=== PATIENT | male | born 1950 | race Caucasian/White ===

== ENCOUNTER → 2018-10-17 | Outpatient (CLI) | payer BC ==
[~2018-10-17] MED LIST: ALLOPURINOL 30300 M3 PO; AMARYL1 MG PO; AMLODIPINE BESY10 MG PO; BYETTA PEN 11 PENINJ SUBQ; CARVEDILOL12.5 MG PO; COLACE100 MG PO; COZAAR100 MG PO; CRESTOR10 MG PO; DIOVAN320 MG PO; ENOXAPARIN30 MG/0.3 SQ; FLOMAX0.4 MG PO; FLONASE 0.05%50 MCG NASAL; FLUZONE 2045 MCG/011; FUROSEMIDE 80 M80 M1 PO; GABAPENTIN PO; GLUCOPHAGE1000 MG PO; GLUCOPHAGE500 MG PO; HYDROCODON-ACE1 EAC7 PO; KEFLEX500 MG PO; LACTULOSE; LANTUS SUBQ; LEVOTHYROXINE100 MCG PO; LIPITOR80 MG PO; LO-DOSE ASPIRIN81 M1 PO; LOVAZA1000 MG PO; MEN'S MULTIVIT1 EAC1 PO; MOBIC15 MG PO; NEXIUM20 M1 PO; NOVOLOG100 UNIT/1 PO; OXYCODONE-ACET1 EACH PO; OXYIR5 MG PO; PNEUMOVAX25 MCG/0.5; PRILOSEC 20 MG20 MG PO; PROAIR HFA8.5 GM; STOOL SOFTENER100 MG PO; VICTOZA0.6 MG/0.1 SUBQ; VITAMIN D-32000 UNIT PO
--- NOTE | ~2018-10-17 | PAINCON ---
[address] [address] PAIN MANAGEMENT CONSULTATION Name: LETYMARCELA RUEDA Room: [facility]#: [id number] Admission: 10/17/18 Attend Phys: Jed Ahn MD Discharge: Date of : 46 Report #: [id number] THIS REPORT FOR: //name// CC: Kirit Ahn DATE OF SERVICE: 10/17/2018 CHIEF COMPLAINT: Back pain. HISTORY OF PRESENT ILLNESS: The patient is a 68-year-old gentleman who has been referred to the pain clinic for evaluation. The patient has pain and discomfort in the lumbar area. He has had a laminectomy in the past. This was in 09/2016. States that it was at the lumbar area L3 through L5. He has continued to note some worsening of his pain and discomfort. He is limited in his ability to engage in activities of daily living such as walking, standing, because of the pain. He also has left and right knee pain. Finds that the oxycodone medication is helpful in those areas. Describes his pain as a 0 when sitting, but continues to escalate and becomes quite problematic to the point that it stops him from ambulating or standing after prolonged activity. Has used Tylenol to help control the pain. He has been told that he has spinal stenosis. Rates the pain as an 8/10 with activity. He has returned to the pain clinic for evaluation. ALLERGIES: IODINE, BETADINE, PETROLEUM JELLY, BLOOD PRESSURE CUFFS, TAPE, BAND-AIDS. HYDROMORPHONE CAUSES HALLUCINATIONS. CURRENT MEDICATIONS: Lipitor 80 mg, Coreg 12.5 mg 2 tablets daily, ProAir inhaler, Synthroid 100 mcg, losartan 100 mg, Lantus 15 mL, insulin injection does an injection at bedtime, NovoLog 9 units before meals, Victoza 1.8 mg, lactulose solution, Flomax 0.4 mg, Lasix 80 mg in the morning and 40 mg at night, ____, allopurinol 300 mg for gout, Vitamin D3 2000 international units, vitamin B12 1000 mcg, iron 65 mg, aspirin 81 mg, Mins one a day, omeprazole 20 mg, stool softener and laxatives p.r.n., and omega-3 1200 mg b.i.d. PAST MEDICAL HISTORY: 1. Diabetes. 2. Asthma. 3. Hypertension. 4. Heart disease. 5. Joint disease/arthritis. 6. Coronary artery disease. 7. Chronic kidney disease, stage 3. 8. Congestive heart failure. 9. COPD. 10. [place] [address] PAIN MANAGEMENT CONSULTATION Name: MARCELA DAVIDSON Room: [facility]#: [id number] Admission: 10/17/18 Attend Phys: Jed Ahn MD Discharge: Date of : 46 Report #: [id number] 11. 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 12. Obesity. 13. Nonalcoholic steatohepatitis. 14. Obstructive sleep apnea. 15. Spinal stenosis. 16. Trigger finger, right index. 17. Type 2 diabetes. 18. Diabetic polyneuropathy. PAST SURGICAL HISTORY: Appendectomy in 1966, carpal tunnel surgery in 2006, coronary artery stent placement in 03/2009, fracture bone in 1995 and 1996, hemorrhoidectomy in 1985, left knee replacement in 2011, laminectomy, left knee scope in 2011, left total knee arthroplasty, liver biopsy, meniscal tear repair in 2006, and tonsillectomy as a child. REVIEW OF SYSTEMS: Generally good health, fatigue, weakness, hearing loss, heart trouble, chest pain, shortness of breath with walking, swelling of feet, ankles, hands, asthma, joint pain, joint stiffness, muscle weakness, muscle pain, cramping, back pain, difficulty walking, slow to heal, bleeding and bruising tendencies, and transfusions. LABORATORY DATA: MRI of the lumbar spine dated 03/01/2017: 1. L1-L2, there is a mild degenerative disk bulge. Degenerative changes are seen involving the facet joints bilaterally. There is moderate ligamentum flavum hypertrophy bilaterally. There is prominence of the posterior epidural fat. These findings combine, do not result in significant spinal canal or neural foraminal stenosis. 2. L3-L4, the disk space, there is a moderate generalized disk bulge. Degenerative changes are seen involving the facet joints bilaterally. The patient is post-laminectomy at this level. Epidural scarring surrounding the posterior aspect of the thecal sac laterally. Mild left greater than right neural foraminal stenosis. Epidural scarring does not result in significant spinal canal stenosis. 3. L3-L4 disk space. There is mild degenerative disk bulge. The patient has post-laminectomy. Epidural scarring surrounds the posterior thecal sac. There is mild generalized disk bulge. There is eccentric left bulging to the left. Degenerative changes are seen involving the facet joints bilaterally. These findings do not significantly call spinal stenosis. 4. L4-L5, the space is post-laminectomy. Epidural scarring surrounds posterior aspect of the thecal sac laterally. There is moderate generalized disk bulge. The degenerative changes are seen involving the facet joints. These findings do not result in significant spinal canal stenosis. Moderate right neural foraminal stenosis is seen. The left neural foramen is patent. 5. At the L5-S1 disk space. There is a minimal degeneralized disk bulge. Prominent anterior and posterior epidural fat is seen. No definite area of significant spinal canal or neural foraminal stenosis. [facility] [place] [address] [place] [address] PAIN MANAGEMENT CONSULTATION Name: MARCELA DAVIDSON Room: [facility]#: [id number] Admission: 10/17/18 Attend Phys: Jed Ahn MD Discharge: Date of : 46 Report #: [id number] PAIN CLINIC ASSESSMENT AND PQRS: 1. The patient has some arthritic changes in lower portion of his back. He has had knee replacements on the left, knee scoping on the left, meniscal repairs on the right. The patient is not being treated for rheumatoid arthritis. 2. Height is 6 feet 0, weight 306 pounds, BMI is 41.5. 3. VITAL SIGNS: Blood pressure 158/79, heart rate 84, respiratory rate 16, room air saturation 96%, temperature 98.2. 4. Pain is 0 while sitting and 8/10 with walking and with activity. 5. Fall history: The patient has not fallen in the last 3 months. 6. Blood thinner. The patient is not on a blood thinning medication. 7. Hypertension. The patient is being treated for hypertension. 8. Opioids greater than 6 weeks. The patient is not taking an opioid medication on a long-term basis. 9. Risk assessment tool, low for opioid use. 10. Functional assessment tool, pain impact score is 29/70. 11. Recreational drug use. The patient denies use of recreational drugs. 12. Tobacco: The patient states he is not smoking at this juncture. 13. Alcohol: The patient denies significant use of alcoholic beverages. PHYSICAL EXAMINATION: GENERAL: The patient is a well-developed, well-nourished white male. Appears his stated age of 68. He is alert and oriented x 3. His affect is appropriate. Speech is fluent. HEENT: Normocephalic, atraumatic. Extraocular eye muscles intact. Sclerae nonicteric. Mucous membranes are moist. NECK: Without adenopathy or JVD. HEART: Regular rate today. LUNGS: Generally clear to auscultation. EXTREMITIES: Upper extremity muscle strength is judged to be 5/5 for the major muscle groups in the upper extremity. Deep tendon reflexes +1 at the biceps bilaterally. The patient without significant scoliosis. A well-healed scar in the lower portion of his back. The patient with complains of pain and discomfort with activity. Has no pain when sitting. Anterior and posterior spring tests are negative. The patient has some left and right paraspinus muscle soreness. Handy's sign negative. IMPRESSION: 1. Clinical findings of spinal stenosis. 2. Diabetes. 3. Asthma. 4. Hypertension. 5. Heart disease. 6. Joint disease/arthritis. 7. Coronary artery disease. 8. Chronic kidney disease, stage 3. [place] [address] PAIN MANAGEMENT CONSULTATION Name: MARCELA DAVIDSON Room: [facility]#: [id number] Admission: 10/17/18 Attend Phys: Jed Ahn MD Discharge: Date of : 46 Report #: [id number] 9. Congestive heart failure. 10. Chronic obstructive pulmonary disease. 11. Elevated cholesterol. 12. 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 13. Obesity. 14. Nonalcoholic steatohepatitis. 15. Obstructive sleep apnea. 16. Spinal stenosis. 17. Trigger finger, right index. 18. Type 2 diabetes. 19. Diabetic polyneuropathy. RECOMMENDATIONS: We discussed treatment options with the patient. The patient has clinical findings consistent with spinal stenosis. States that when he goes shopping if he leans on a cot, he does relatively well. Prolonged standing causes exacerbation of pain and discomfort down into his legs. He is not using opioid medications on a regular basis. We would recommend that the patient at this juncture try a low dose of opioid medication. A script for oxycodone has been written. The patient states that he has used opioids in the past. He is not sure that they have been very helpful. We recommend that he takes the medication prior to activities say if he is going to the shopping or going to engage in other activities then he should take the 5 mg of OxyContin prior to the procedure, it can be difficult to provide the patients with opioid medications with spinal stenosis. They generally have no pain while sedentary. Pain becomes more problematic when they are active. We also described a maneuver where the patient if standing, places his foot on a stool about 6 inches high. This changes the position of the spinal cord. Hopefully, opening up the spinal cord where he could stand for a longer period of time and do activities such as working in his garage, brushing his teeth, or working in the kitchen. He will call us if he has any concerns with his medications. We would like to thank you for letting us participate in his care. We hope he continues to improve. By: [id number]. Eric Ahn MD /reid
== END ==
LOC: M.PC 12:10
DX: M47.816 Spondylosis without myelopathy or radiculopathy, lumbar region (principal); M48.061 Spinal stenosis, lumbar region without neurogenic claudication; E11.22 Type 2 diabetes mellitus with diabetic chronic kidney disease; I13.0 Hypertensive heart and chronic kidney disease with heart failure and stage 1 through stage 4 chronic kidney disease, or unspecified chronic kidney disease; N18.3 Chronic kidney disease, stage 3 (moderate); I50.9 Heart failure, unspecified; I25.10 Atherosclerotic heart disease of native coronary artery without angina pectoris; J44.9 Chronic obstructive pulmonary disease, unspecified; M65.321 Trigger finger, right index finger; M19.90 Unspecified osteoarthritis, unspecified site; E78.00 Pure hypercholesterolemia, unspecified; E06.3 Autoimmune thyroiditis; E66.9 Obesity, unspecified; G47.33 Obstructive sleep apnea (adult) (pediatric); E11.42 Type 2 diabetes mellitus with diabetic polyneuropathy; Z96.652 Presence of left artificial knee joint; Z88.8 Allergy status to other drugs, medicaments and biological substances; Z91.041 Radiographic dye allergy status; Z91.09 Other allergy status, other than to drugs and biological substances; Z79.899 Other long term (current) drug therapy; Z79.891 Long term (current) use of opiate analgesic; Z79.4 Long term (current) use of insulin; Z68.41 Body mass index [BMI] 40.0-44.9, adult